=== PATIENT | female | born 1940 | race Caucasian/White ===

== ENCOUNTER 2017-02-25 10:05 | Day surgery (SDC) | payer MEDICARE, OTHER ==
[~2017-02-25] VITALS: Ht 157.5 cm; Wt 102.9 kg
[2017-02-25] VITALS (9 sets, daily range): BP systolic 117–140; BP diastolic 60–82; O2SAT 96–98
[~2017-02-25 10:05] MED LIST: ALPH0.156 OU; ATEN25TA PO; ATOR1TAB19 PO; BIMA01SOL OU; CALC1TAB40 PO; CENTTAB12 PO; DIGO0.25 PO; FAMOTIDINE 20 MG TAB PO SCH; LORA10CA PO; LUBR0.5D OU; RANI150T PO; TRAN1TAB PO; XARE20TA PO
[2017-02-25] MEDS ORDERED: LIDOCAINE 1% MDV 20ML VIAL SQ PRN (10:30)
[2017-02-25] MEDS ORDERED: LR 1,000 ML IV ONE (10:30)
[2017-02-25] MEDS ORDERED: MIDAZOLAM INJ 2 MG/2 ML VIAL (J2250) As Ordered ONE (10:58)
[2017-02-25] MEDS ORDERED: PROPOFOL 200 MG/20 ML VIAL As Ordered ONE (10:58)
[2017-02-25] MEDS ORDERED: LIDOCAINE 2% INJ 100 MG/5 ML SDV (FOR ANES.) As Ordered ONE (10:58)
[2017-02-25] MEDS ORDERED: fentaNYL 100 MCG/2 ML INJECTION (J3010) As Ordered ONE (10:59)
[2017-02-25] MEDS ORDERED: LR 1,000 ML IV SCH (11:00)
[2017-02-25] MEDS ORDERED: LIDOCAINE 1% SDV INJ 30 ML VIAL As Ordered ONE (12:28)
[2017-02-25] MEDS ORDERED: DIGOXIN INJ 0.5 MG/2 ML AMP (J1160) As Ordered ONE (13:39)
[2017-02-25] MEDS ORDERED: ATENOLOL 25 MG TAB PO ONE (14:00)
[2017-02-25] MEDS ORDERED: ATENOLOL 25 MG TAB As Ordered ONE (14:10)
[2017-02-25] MEDS ORDERED: ACETAMINOPHEN TAB 650MG DOSE (2X325MG) PO PRN (14:15)
[2017-02-25] MEDS ORDERED: DIGOXIN INJ 0.5 MG/2 ML AMP (J1160) IV ONE (14:15)
[2017-02-25] MEDS ORDERED: ACETAMINOPH W/CODEINE #3 TAB UD PO PRN (14:15)
[2017-02-25] MEDS ORDERED: NITROGLYCERIN 0.4 MG SUBL TABLET SL PRN (14:30)
--- NOTE | 2017-02-25 14:32 | REP ---
PORTABLE CHEST X-RAY: Single view. HISTORY: Pacemaker insertion. Comparison study March 31, 2007. FINDINGS: A unipolar pacemaker has been inserted in the right heart via the left side. There is no evidence of pneumothorax or hydrothorax. The lungs are exposed with a lesser inspiratory level. Heart is not felt to be enlarged. IMPRESSION: Low level of inspiration. Pacemaker inserted. No complication identified. Signed by Emre Arthur MD 02/25/2017 04:41 P
[2017-02-25] MEDS: BRIMONIDINE 0.1% OPHTH SOLN 5 ML OU SCH ×2 (15:05→21:00)
[2017-02-25] MEDS: DOCUSATE SODIUM 100 MG CAP PO SCH ×2 (15:06→20:43)
[2017-02-25] MEDS: LORATADINE 10 MG TAB PO SCH (15:06)
--- NOTE | 2017-02-25 15:29 | RO ---
DATE OF PROCEDURE: 02/25/2017 PROCEDURE: Implantation of single chamber ventricular pacemaker. IMPLANTING TREE FARMER: Dr. Adan Salazar ANESTHESIOLOGIST: Dr. Stephens PREOPERATIVE DIAGNOSES: 1. Intermittent high-grade AV block. 2. Chronic atrial fibrillation. POSTPROCEDURE DIAGNOSES: 1. Intermittent high-grade AV block. 2. Chronic atrial fibrillation. TYPE OF ANESTHESIA: Monitored local anesthesia. CLINICAL SUMMARY: This 76-year-old mother of two grown children, resident of [place], [place] is known to my cardiology practice with ischemic, hypertensive and mitral valvular heart disease complicated by chronic atrial fibrillation. Underwent left anterior descending coronary artery PTCA January 1993. Last pharmacological stress heart scan May 2015 showed no inducible chest pain, EKG ST-T-wave change, normal LV wall motion, breast tissue attenuation artifact but no reversible myocardial perfusion defect to suggest ongoing myocardial ischemia. Echocardiogram June 2015 showed normal left ventricular size and wall thickness with severe left atrial dilatation, mitral valve prolapse with mild mitral annular calcification and moderate insufficiency. Aortic valvular sclerosis with very mild aortic insufficiency. LVEF was normal. She had been followed closely by my practice and on atenolol 50 mg daily for control of her ventricular response to atrial fibrillation. Recently, she has complained of some dizziness and found to have a slower heart rate, 53 beats per minute;Atenolol dosage was decreased. Followup 24-hour Holter monitor showed a "tachy-danica" response to her atrial fibrillation with a 51 episodes of pauses of more than 2 seconds, longest 3.5 seconds, occurring during wakeful hours alternating with rates as high as 180 beats per minute with average ventricular response of 113 beats per minute. In light of these findings, we recommended implantation of a permanent ventricular demand pacemaker to allow safe administration of additional negative chronotropic therapy. The patient is limited by dyspnea. Denies any chest discomfort and is not aware of her heart action. Dizzy spells as mentioned above leading to a recent reduction in her beta belle therapy. On Xarelto she has been free of embolic phenomenon or hemorrhagic complication. PHYSICAL EXAMINATION: Obese, pleasant, elderly lady laying comfortably. Heart rate 120 beats per minute and irregular, blood pressure 126/64 sitting, respiratory rate 18 per minute and Body Mass Index (BMI) 38.6. No pallor or cyanosis. Normal oral moisture. Trachea midline. Thyroid not enlarged. Jugular veins were 3 cm above sternal angle. Slightly increased anteroposterior chest diameter with good air entry over both lung penn with no adventitious sounds. Apical impulse not palpable. Heart sounds distant. Soft systolic murmur along the left sternal border. Normal carotid upstrokes but variable volume. Peripheral pulses were symmetrical and normal. Has less than 1 mm pitting edema to the mid tibial level bilaterally. Soft, overweight abdomen. EKG February 19, 2017 showed underlying atrial fibrillation with somewhat rapid ventricular response averaging 103 beats per minute. Somewhat low precordial voltages and incomplete right bundle branch block pattern consistent with body habitus versus pulmonary disease. Diffuse nonspecific ST-T wave abnormalities. Last chemistry and blood work showed a normal complete blood count. Hemoglobin 12.9, normal white blood cell count. Normal electrolytes with potassium 4.1, BUN 22, creatinine 1.0, glucose 111. DESCRIPTION OF PROCEDURE: In the patient in a fasting state, having signed informed consent and having received Ancef 2 grams IV premedication, she was taken to the operating theater. Numerous skin electrodes were applied to facilitate continuous electrocardiographic monitoring. The left subclavian region was prepped and draped in the usual fashion. The skin was infiltrated with 1% Xylocaine and the left axillary vein was catheterized using the micropuncture technique. A 5-cm linear incision was made several centimeters below and parallel to the left clavicle. Dissection was carried down the level with pectoralis fascia and a pocket was fashioned below the level of the mid incision line. One bipolar screw-in active fixation, steroid eluding pacing lead was then positioned to the right ventricular apex under fluoroscopic and electrocardiographic control. The right ventricular lead ([employer] model number [id number]/58, serial number [id number]) measurements were: Stimulation threshold 0.8 V/0.4 ms/impedance 1106 ohms. R wave amplitude measured 12.5 mV. This lead was secured in position with sleeves sutured at its insertion site. It was then connected to a single chamber pulse generator ([employer] - Assurity MRI compatible, model number [id number], serial number [id number]) and appropriate VVI pacing was documented. The device was placed in a pocket of skin positioned with a suture through the upper right-hand corner of the Epoxy header. The subcutaneous tissues were approximated using a running chromic suture and skin was closed using kilo. Dry dressing was applied. The patient was returned to recovery room in good condition. Estimated blood loss was less than 20 mL. No apparent complications. The patient's portable upright chest x-ray showed good lead position with no pneumothorax. EKG showed currently atrial fibrillation with a rapid ventricular response, pacemaker sensing uninhibited at this time. Our plan will be to monitor the patient overnight and obtain a followup PA and left lateral chest x-ray and EKG in the morning. Her device will be reinterrogated at that time as well. We anticipate she will be able to be discharged home before noon. DISCHARGE MEDICATIONS AND RECOMMENDATIONS: The patient will be requested to perform only light activities of daily living with her left arm and avoid getting her incision wet until the kilo are removed in my office at followup on March 05, 2017 at 8:00 a.m. She has been encouraged to contact us promptly for any abnormal erythema, swelling or discharge. Her diet will resume with no added salt, low-fat, low-cholesterol. MEDICATIONS Will continue now: - digoxin 0.25 mg daily - atenolol 25 mg bid - Trandolapril 1 mg tablets one half tablet daily - atorvastatin 5 mg by mouth at night on Mondays, Wednesdays and Fridays only - Xarelto 20 mg daily will be resumed starting February 27, 2017 - Zantac 150 mg at night - Centrum Silver one tablet daily - calcium, magnesium and zinc one tablet daily - Tylenol 325 mg one or two tablets four times a day as needed for pain - Alphagan P 0.1% eye drops one drop each eye twice a day - Lumigan eye drops 0.01% one drop each eye at night - lubricant eye drops 0.4 - 0.3% one drop each eye three times a day - loratadine 10 mg daily MTDD
[2017-02-25] MEDS: POLYVINYL ALCOHOL OPHTH SOLN 15 ML(LIQUITEARS) OU SCH ×2 (17:02→20:46)
[2017-02-25] MEDS: TRANDOLAPRIL 1 MG TAB PO SCH (17:02)
--- NOTE | 2017-02-25 19:11 | ECGEPIP ---
Stationary ECG Study [facility] Test Date: 2017-02-25 Pat Name: LORRI NICE Department: Room: - Gender: F Line Up Examiner: RF : 1940 Requested By: Adan Salazar Order Number: [id number] Reading MD: Adan Salazar Measurements Intervals [place] Rate: 125 P: [place]: 0 QRS: 9 QRSD: 98 T: 9 QT: 291 QTc: 420 Interpretive Statements Underlying atrial fibrillation with rapid ventricular response. Somewhat low voltages Nonspecific ST/T-wave abnormalities. No prior tracing for comparison. Clinical correlation advised. Electronically Signed On 02-25-2017 19:10:58 EDT by Adan Salazar
[2017-02-25] MEDS: ceFAZolin SOD 1 GM in D5W MINI-BAG PLUS 50 ML IV SCH (20:46)
[2017-02-25] MEDS: ATENOLOL 25 MG TAB PO SCH (20:46)
[2017-02-25] MEDS ORDERED: FAMOTIDINE 20 MG TAB PO SCH (21:00)
[2017-02-25] MEDS ORDERED: LATANOPROST 0.005% OPHTH SOLN 2.5 ML OU SCH (21:00)
[2017-02-26] VITALS (7 sets, daily range): BP systolic 115–140; BP diastolic 65–93; O2SAT 93–98
[2017-02-26] MEDS: ceFAZolin SOD 1 GM in D5W MINI-BAG PLUS 50 ML IV SCH ×2 (05:21→12:05)
[2017-02-26] MEDS: POLYVINYL ALCOHOL OPHTH SOLN 15 ML(LIQUITEARS) OU SCH (08:42)
[2017-02-26] MEDS: TRANDOLAPRIL 1 MG TAB PO SCH (08:43)
[2017-02-26] MEDS: ATENOLOL 25 MG TAB PO SCH (08:44)
[2017-02-26] MEDS: LORATADINE 10 MG TAB PO SCH (08:44)
[2017-02-26] MEDS: DOCUSATE SODIUM 100 MG CAP PO SCH (08:45)
--- NOTE | 2017-02-26 08:48 | REP ---
Chest three views a single PA and two lateral projections: Comparison to 02/25/2017 and 03/31/2007. There is a single lead pacemaker entering from left with the pacing tip in satisfactory location. There is no pneumothorax or pleural fluid collection. There is a surgical staple adjacent to the pacemaker pack. Lung penn are clear. Cardiac size is normal. Signed by Mundo Lagos MD 02/26/2017 08:39 A
[2017-02-26] MEDS ORDERED: ATORVASTATIN 5MG PER 1/2 TABLET PO SCH (09:00)
[2017-02-26] MEDS ORDERED: DIGOXIN 0.25 MG TAB PO SCH (09:00)
[2017-02-26] MEDS: BRIMONIDINE 0.1% OPHTH SOLN 5 ML OU SCH (09:00)
[2017-02-26] MEDS ORDERED: FAMOTIDINE 20 MG TAB PO SCH (21:00)
--- NOTE | 2017-02-26 22:29 | ECGEPIP ---
Stationary ECG Study [facility] Test Date: 2017-02-26 Pat Name: LORRI PERSIAN Department: Room: D8488-68 Gender: F Grapple Crew Leader: : 1940 Requested By: Adan Salazar Order Number: [id number] Reading MD: Neil Carrington Measurements Intervals [place] Rate: 108 P: [place]: 0 QRS: 9 QRSD: 95 T: 2 QT: 308 QTc: 413 Interpretive Statements ATRIAL FIBRILLATION WITH RAPID VENTRICULAR RESPONSE POSSIBLE RIGHT VENTRICULAR CONDUCTION DELAY MODERATE ST DEPRESSION Consider digoxin effect Electronically Signed On 02-26-2017 22:29:37 EDT by Neil Carrington
[2017-02-27] MEDS ORDERED: RIVAROXABAN 20 MG TAB (XARELTO) PO SCH (18:00)
== END 2017-02-26 15:58 | disposition home or self-care (01) ==
LOC: M SDC 10:05 → M PCU 14:32 → M SDC 02-26 15:58
PROVIDERS: ATTEND Internal Medicine Cardiovascular Disease
DX: I44.2 Atrioventricular block, complete (principal); I48.2 Chronic atrial fibrillation; I25.10 Atherosclerotic heart disease of native coronary artery without angina pectoris; I10 Essential (primary) hypertension; R94.31 Abnormal electrocardiogram [ECG] [EKG]; Z79.02 Long term (current) use of antithrombotics/antiplatelets; Z79.899 Other long term (current) drug therapy; E78.00 Pure hypercholesterolemia, unspecified; K21.9 Gastro-esophageal reflux disease without esophagitis
CPT/HCPCS: 33207; 71010; 71020; 76000; 93005; 96375; 96376; C1786; C1898; J0690; J1160; J2250; J3010

== ENCOUNTER → 2022-08-11 | Outpatient (REF) | payer MEDICARE, OTHER ==
[~2022-08-11] MED LIST changes: +BISO10TA14 PO; +CLAR10CA3 PO; -FAMOTIDINE 20 MG TAB PO SCH; +FEOS200T2 PO; +NITR0.4S14; +SPIR-10 PO; +TORS5TAB2 PO; -TRAN1TAB PO; +TRAN1TAB54 PO
[2022-08-11 13:45] LABS: APPEARANCE, URINE MANUAL CLEAR (CLEAR); COLOR, URINE MANUAL LT YELLOW (YELLOW)
[2022-08-11 13:46] LABS: BILIRUBIN, URINE MANUAL NEGATIVE (NEGATIVE); BLOOD URINE MANUAL NEGATIVE (NEGATIVE); GLUCOSE, URINE (UA) MANUAL NEGATIVE (NEGATIVE); KETONE, URINE MANUAL NEGATIVE (NEGATIVE); LEUKOCYTE ESTERASE, URINE MAN TRACE (NEGATIVE); NITRITE, URINE MANUAL NEGATIVE (NEGATIVE); PROTEIN, URINE MANUAL NEGATIVE (NEGATIVE); UROBILINOGEN, URINE MANUAL NORMAL (NORMAL)
[2022-08-11 14:09] LABS: SQUAMOUS EPITHELIAL CELL URINE MOD AMOUNT /hpf (SMALL AMT)
[2022-08-11 14:10] LABS: CALCIUM OXALATE CRYSTALS,URINE MOD AMOUNT /hpf; RBC, URINE 0-1 /hpf (0-3)
[2022-08-11 14:11] LABS: BACTERIA, URINE MOD AMOUNT
== END ==
LOC: M SMT 12:57
PROVIDERS: ATTEND Nurse Practitioner Women's Health
DX: R31.29 Other microscopic hematuria (principal)

== ENCOUNTER → 2022-08-18 | Outpatient (REF) | payer MEDICARE, OTHER | LOC: M SMT 16:52 | PROVIDERS: ATTEND Nurse Practitioner Women's Health | DX: R31.29 Other microscopic hematuria (principal) ==

== ENCOUNTER → 2022-09-13 | Outpatient (CLI) | payer MEDICARE, OTHER | LOC: M LABSMTC 10:19 | PROVIDERS: ATTEND Anesthesiology | DX: Z01.812 Encounter for preprocedural laboratory examination (principal); Z20.822 Contact with and (suspected) exposure to COVID-19 ==

== ENCOUNTER 2023-01-07 07:41 | Day surgery (SDC) | payer MEDICARE, OTHER ==
[~2023-01-07] VITALS: Ht 160 cm; Wt 72.6 kg
[~2023-01-07 07:41] MED LIST changes: +ANAS1TAB2 PO; +NS 1,000 ML IV ONE
[2023-01-07] MEDS ORDERED: propofoL 200 MG/20 ML VIAL As Ordered ONE (08:50)
[2023-01-07] MEDS ORDERED: LIDOCAINE 2% 100MG/5ML SDV (FOR ANES.) As Ordered ONE (08:50)
[2023-01-07] MEDS ORDERED: fentaNYL 100 MCG/2 ML INJECTION As Ordered ONE (08:50)
[2023-01-07] MEDS ORDERED: ePHEDrine SULFATE 25 MG/5 ML(5MG/ML) SYRINGE As Ordered ONE (09:42)
[2023-01-07 10:15] VITALS: BP 128/60
== END 2023-01-07 10:37 | disposition home or self-care (01) ==
LOC: M OPP 07:41
PROVIDERS: ATTEND Surgery
DX: D12.6 Benign neoplasm of colon, unspecified (principal); K64.4 Residual hemorrhoidal skin tags; K64.8 Other hemorrhoids; K57.30 Diverticulosis of large intestine without perforation or abscess without bleeding; R19.5 Other fecal abnormalities; D50.9 Iron deficiency anemia, unspecified; K21.00 Gastro-esophageal reflux disease with esophagitis, without bleeding; Z79.01 Long term (current) use of anticoagulants; Z79.02 Long term (current) use of antithrombotics/antiplatelets; Z79.899 Other long term (current) drug therapy
CPT/HCPCS: 43235; 45380; 88305; J3010

== ENCOUNTER → 2023-06-09 | Outpatient (REF) | payer MEDICARE, OTHER ==
[~2023-06-09] MED LIST changes: -NS 1,000 ML IV ONE
== END ==
LOC: M LAB REF 16:11
PROVIDERS: ATTEND Surgery
DX: D48.5 Neoplasm of uncertain behavior of skin (principal); L72.11 Pilar cyst

== ENCOUNTER → 2024-05-29 | Outpatient (REF) | payer MEDICARE, OTHER | LOC: M SFHCCLAY 09:39 | PROVIDERS: ATTEND Physician Assistant | DX: R30.0 Dysuria (principal) ==

== ENCOUNTER → 2024-12-26 | Outpatient (REF) | payer MEDICARE, OTHER ==
[~2024-12-26] MED LIST changes: +CARB15DR64 OU; -LUBR0.5D OU
[2024-12-26 18:49] LABS: HEMOGLOBIN 11.9 g/dl (12.0-15.5); MEAN CORPUSCULAR HEMOGLOBIN 33.1 pg (27.0-33.0); MEAN CORPUSCULAR HGB CONC 31.3 g/dl (32.0-36.5); MEAN CORPUSCULAR VOLUME 105.8 fl (80.0-96.0); RED BLOOD COUNT 3.59 10^6/uL (4.00-5.40); WHITE BLOOD COUNT 9.3 10^3/uL (4.0-10.0)
[2024-12-26 19:12] LABS: ALBUMIN 3.8 G/DL (3.2-5.2); BILIRUBIN,TOTAL 0.5 MG/DL (0.3-1.2); CALCIUM LEVEL 9.6 MG/DL (8.3-10.6); CHOLESTEROL RISK RATIO 3.83 (<5); CREATININE FOR GFR 1.22 MG/DL (0.55-1.30); FREE T4 1.11 NG/DL (0.89-1.76); HDL CHOLESTEROL 50.3 MG/DL (>40); LDL CHOLESTEROL 110.1 MG/DL (<100); NON-HDL-C 142.7 MG/DL; POTASSIUM SERUM 4.8 MMOL/L (3.5-5.1); THYROID STIMULATING HORMONE 3.76 uIU/ML (0.55-4.78); TOTAL PROTEIN 6.7 G/DL (5.7-8.2)
[2024-12-26 19:25] LABS: HEMOGLOBIN A1c 5.4 % (4.0-6.0)
[2024-12-26 19:28] LABS: PLATELET COUNT, AUTOMATED 1081 10^3/uL (150-450)
== END ==
LOC: M SFHCCLAY 10:57
PROVIDERS: ATTEND Family Medicine
DX: D64.9 Anemia, unspecified (principal); E78.2 Mixed hyperlipidemia; R73.01 Impaired fasting glucose; I10 Essential (primary) hypertension; R41.3 Other amnesia

== ENCOUNTER → 2025-06-29 | Outpatient (REF) | payer MEDICARE, OTHER ==
[2025-06-29 19:07] LABS: IRON (FE) 161.0 UG/DL (50-170)
[2025-06-29 19:08] LABS: ALT/SGPT 26.0 U/L (7.0-40); AST/SGOT 27.0 U/L (<34); CALCIUM LEVEL 10.0 MG/DL (8.3-10.6); CARBON DIOXIDE LEVEL 29.0 MMOL/L (20-31); CHLORIDE LEVEL 104.0 MMOL/L (98-107); CREATININE FOR GFR 1.44 MG/DL (0.55-1.30); GLOMERULAR FILTRATION RATE 36.1 (>32); POTASSIUM SERUM 4.9 MMOL/L (3.5-5.1); SODIUM LEVEL 141.0 MMOL/L (136-145)
[2025-06-29 19:19] LABS: PLATELET COUNT, AUTOMATED 1228 10^3/uL (150-450)
== END ==
LOC: M SFHCCLAY 10:25
PROVIDERS: ATTEND Family Medicine
DX: D64.9 Anemia, unspecified (principal); E78.2 Mixed hyperlipidemia

== ENCOUNTER → 2025-06-29 | Outpatient (CLI) | payer MEDICARE, OTHER | LOC: M CLY 10:59 | PROVIDERS: ATTEND Family Medicine | DX: M54.32 Sciatica, left side (principal); M25.552 Pain in left hip; M16.12 Unilateral primary osteoarthritis, left hip; M47.816 Spondylosis without myelopathy or radiculopathy, lumbar region ==